=== PATIENT | female | born 1945 | race Caucasian/White ===

== ENCOUNTER → 2016-11-20 | Outpatient (CLI) | payer OTHER, MEDICARE ==
--- NOTE | 2016-11-20 10:42 | US ---
Ultrasound Pelvis Complete (Transabdominal and Endovaginal) Including Duplex/Doppler Imaging History: N95.0, postmenopausal bleeding Technique: Transabdominal and endovaginal ultrasound images were obtained. Endovaginal images obtain ed for better evaluation of the uterine myometrium and adnexa. Duplex/Doppler imaging of adnexa. Findings: Uterus measures 7.3 x 3.5 x 2.8 cm. Endometrial thickness is 3 mm. In the right fundus of the uterus there is an exophytic hypoechoic heterogenous leiomyoma measuring 2.5 x 2 x 1.6 cm. In th e endocervical canal there are two polypoid lesions with surrounding fluid measuring 0.7 x 0.6 x 0.3 cm and 0.6 x 0.5 x 0.4 cm. Right ovary measures 1 x 0.8 x 0.6 cm. Left ovary measures 1.3 x 1.2 x 0.9 cm. No adnexal masses. No significant free fluid in the pelvis. Color Doppler flow to both ovaries without torsion. Impression: 1. Uterus demonstrates two endocervical polypoid masses up to 0.7 cm. Recommend endometrial biopsy. 2. Right-sided fundal uterine leiomyoma measuring 2.5 x 2 x 1.6 cm. 3. No adnexal masses or ascites.
== END ==
LOC: FIMAGING 09:21
PROVIDERS: ATTEND Midwife
DX: N95.0 Postmenopausal bleeding (principal); N88.8 Other specified noninflammatory disorders of cervix uteri; D25.9 Leiomyoma of uterus, unspecified

== ENCOUNTER 2017-01-03 06:36 | Day surgery (SDC) | payer OTHER, MEDICARE ==
[2016-12-24 18:55] LABS: ANION GAP 11 mEq/L (8-16); CALCIUM 10.1 mg/dL (8.5-10.4); CARBON DIOXIDE 23 mEq/l (22-31); CHLORIDE 104 mEq/L (97-110); CREATININE 1.1 mg/dL (0.6-1.0); GLOMERULAR FILTRATION RATE 49; GLUCOSE 86 mg/dL (70-100); POTASSIUM 4.3 mEq/L (3.5-5.2); SODIUM 138 mEq/L (134-144)
[2017-01-03] MEDS ORDERED: LIDOCAINE 1% 2 ML INJ ONE ×3 (06:54→06:58)
[2017-01-03] MEDS ORDERED: MIDAZOLAM 2 MG/2 ML VIAL ONE (06:58)
[2017-01-03] MEDS ORDERED: DEXAMETHASONE 4 MG/ML VIAL ONE (06:58)
[2017-01-03] MEDS ORDERED: PHENYLEPHRINE 10 MG/ML SDV ONE (06:58)
[2017-01-03] MEDS ORDERED: PROPOFOL/EMULSION 500 MG/50 ML BOTTLE IV ONE (06:58)
[2017-01-03] MEDS ORDERED: ONDANSETRON 4 MG/2 ML VIAL ONE (06:58)
[2017-01-03] MEDS ORDERED: LIDOCAINE 2% 5 ML SDV ONE (06:59)
[2017-01-03] MEDS ORDERED: LIDOCAINE 1% 5 ML SDV ID PRN (07:00)
[2017-01-03] MEDS ORDERED: LR 1,000 ML IV ONE (07:00)
[2017-01-03] MEDS ORDERED: SILVER NITRATE APPLICATOR 1 APPL TP ONE (07:05)
[2017-01-03] MEDS ORDERED: fentaNYL 100 MCG/2 ML INJ ONE (07:49)
--- NOTE | 2017-01-03 10:40 | GOP ---
[f rep st] OPERATIVE REPORT DATE OF OPERATION: 01/03/2017 SURGEON: Yvonne Vitale MD ANESTHESIA: General with LMA. ANESTHESIOLOGIST: Montrell Amaro MD PREOPERATIVE DIAGNOSIS: 1. Postmenopausal vaginal bleeding. 2. Uterine polyp. POSTOPERATIVE DIAGNOSIS: 1. Postmenopausal vaginal bleeding. 2. Uterine polyp. PROCEDURE PERFORMED: Diagnostic hysteroscopy, polypectomy and dilatation and curettage. FINDINGS: Stenotic cervical os, 1 long thin polyp at the lower uterine segment on the left. Otherwise, normal intrauterine cavity consistent with postmenopause. ESTIMATED BLOOD LOSS: Minimal. DESCRIPTION OF PROCEDURE: The patient was taken to the operating room and a time-out was done with all parties present, confirming the planned procedure and the correct patient. General anesthesia with LMA was induced without difficulty. The patient was prepped and draped in the normal sterile fashion in dorsal lithotomy with Edmundo stirrups. A final time-out was performed. The speculum was placed in the vagina, and the cervix was grasped on the anterior lip of the cervix with a single tooth tenaculum. Cervical dilation was then performed, starting out with a #1 Hegar dilator and serially progressing to a #6 dilator. Diagnostic hysteroscopy with a 5 mm 0 degree scope was performed with the above findings. The TruClear morcellator handpiece was introduced and was used to completely resect the polyp. The hysteroscope was then removed. A sharp curettage was performed with scant return of tissue and a gritty texture noted 360 degrees around the uterus. The polyp and the uterine curettings were sent to pathology. The tenaculum was removed. There was no bleeding noted from the cervix or the tenaculum sites. The speculum was removed and the surgery was completed. The patient was awakened in stable condition and transferred to the PACU. Counts were correct x2. FLUID DEFICIT: 475 mL of crystalloid. COMPLICATIONS: None. /[id number]/MODL MTDD
== END 2017-01-03 09:45 | disposition home or self-care (01) ==
LOC: FSGY 06:36
PROVIDERS: ATTEND Obstetrics & Gynecology
PROC: 0UB98ZX Excision of Uterus, Via Natural or Artificial Opening Endoscopic, Diagnostic (ICD-10-PCS; principal; 2017-01-03 07:30)
DX: N95.0 Postmenopausal bleeding (principal); N84.0 Polyp of corpus uteri; I10 Essential (primary) hypertension; E78.5 Hyperlipidemia, unspecified; Z88.0 Allergy status to penicillin
CPT/HCPCS: 58558; C1782; J1100; J2250; J2370; J2405; J2704; J3010

== ENCOUNTER → 2017-09-23 | Outpatient (CLI) | payer OTHER, MEDICARE | LOC: FIMAGING 13:21 | PROVIDERS: ATTEND Internal Medicine | DX: Z12.31 Encounter for screening mammogram for malignant neoplasm of breast (principal) | CPT/HCPCS: G0202 ==

== ENCOUNTER 2017-11-19 09:22 | Day surgery (SDC) | payer OTHER, MEDICARE ==
--- NOTE | 2017-11-19 09:40 | PDANEPAE ---
ANE History of Present Illness 71 year old female presents for cystoscopy and retropubic sling. ANE Past Medical History - Cardiovascular History Hx Hypertension: No Hx Arrhythmias: No Hx Chest Pain: No Hx Coronary Artery / Peripheral Vascular Disease: No Hx CHF / Valvular Disease: No Hx Palpitations: No - Pulmonary History Hx COPD: No Hx Asthma/Reactive Airway Disease: No Hx Recent Upper Respiratory Infection: No Hx Oxygen in Use at Home: No Hx Sleep Apnea: No Sleep Apnea Screening Result - Last Documented: Negative - Neurologic History Hx Cerebrovascular Accident: No Hx Seizures: No Hx Dementia: No - Endocrine History Hx Diabetes: No Obesity: no - Renal History Hx Renal Disorders: No - Liver History Hx Hepatic Disorders: No - Neurological & Psychiatric Hx Hx Neurological and Psychiatric Disorders: No - Cancer History Hx Cancer: No - Congenital Disorder History Hx Congenital Disorders: No - GI History GERD: mild Hx Gastrointestinal Disorders: Yes Gastrointestinal History Comment: gerd occasionaly - Other Health History Other Health History: wears glasses - Chronic Pain History Chronic Pain: No - Surgical History Prior Surgeries: 01/03/17 hysteroscopy with Vitale. right hand surgery ANE Review of Systems Review of systems is: negative Review of Systems: - Exercise capacity Exercise capacity: >=4 METS METS (RN): 4 METS ANE Patient History - Allergies Allergies/Adverse Reactions: Penicillins Allergy (Verified 11/18/17 17:29) Hives - Home Medications Home medications: home medication list seen and reviewed Home Medications: Aldactone 12/19/16 [Last Taken 11/18/17] Aspirin 12/19/16 [Last Taken 11/18/17] Atorvastatin Calcium 12/19/16 [Last Taken 01/02/17] Prometrium 12/19/16 [Last Taken 01/02/17] Vivelle-Dot 0.05MG (*) 12/19/16 [Last Taken 01/01/17] Estrace Vaginal (*) 11/18/17 [Last Taken Unknown] - NPO status NPO Status: no food or drink >8 hours - Anes Hx Anes Hx: no prior problems - Smoking Hx Smoking Status: Never smoked Marijuana use: No - Alcohol Use Alcohol Use: Rarely - Family Anes Hx Family Anes Hx: neg - N/A Family Hx Anesthesia Complications: none ANE Labs/Vital Signs - Vital Signs Vital Signs: reviewed preoperatively; see RN documention for details Height: 154.94 cm Weight: 56.699 kg ANE Physical Exam - Airway Neck exam: FROM Mallampati Score: Class 2 Mouth exam: normal dental/mouth exam - Pulmonary Pulmonary: no respiratory distress - Cardiovascular Cardiovascular: regular rate and rhythym - ASA Status ASA Status: II ANE Anesthesia Plan Anesthesia Plan: general endotracheal anesthesia Total IV Anesthesia: No
[2017-11-19] MEDS ORDERED: LIDOCAINE 1% 2 ML INJ ID PRN (09:42)
[2017-11-19] MEDS ORDERED: LR 1,000 ML IV ONE (09:42)
--- NOTE | 2017-11-19 09:42 | PDHPUP ---
History & Physical Update H&P update statement: This history and physical update is based on an assessment of the patient which was completed after admission or registration (within 24 hours), but prior to the surgery/procedure. H&P update: H&P reviewed & patient examined, no change in patient's condition since H&P completed
--- NOTE | 2017-11-19 09:42 | PDGENHP ---
History and Physical History and Physical: Assessment and Plan: 1. Genuine stress incontinence, female Sunita has fairly straightforward stress urinary incontinence with a mobile urethra. We reviewed all conservative and surgical options. At the end of our discussion she is interested in scheduling a mid urethral sling procedure. Subjective: Patient ID: Sunita Case is a 71 y.o. female who presents to [facility] for urinary incontinence. SAMANTHA Dorsey was kindly referred by Dr. Vitale for urinary incontinence. She is a 71- year-old para 0 woman. She leaks with sneezing and coughing. She walks about 1 hour per day. She will run trials 3 times per week and lifts weights twice per week. She has been leaking urine for about 3 years. More recently it has begun leaking during walking which is extremely bothersome. She has no urinary urgency. She wakes up 1 time per night with the need to urinate. She has tried pelvic floor muscle strengthening without success. She remains sexually active. She will be in [place] the last 3 weeks of November. PastMedicalHistory No past medical history on file. PastSurgicalHistory Past Surgical History: Procedure Laterality Date BREAST SURGERY implants and removed CURRENT MEDICATIONS: Current Outpatient Prescriptions Medication Sig amitriptyline (ELAVIL) 10 mg tablet ESTRACE 0.01 % (0.1 mg/gram) vaginal cream estradiol (VIVELLE-DOT) 0.05 mg/24 hr progesterone (PROMETRIUM) 200 mg capsule spironolactone (ALDACTONE) 50 mg tablet zaleplon (SONATA) 10 mg capsule No current facility-administered medications for this visit. ALLERGIES: Penicillins I have reviewed, verified and agree with the past medical, surgical, , family, social and ROS history as documented by the RN today. Objective: Vital Signs: Visit Vitals BP 102/62 Pulse 88 Temp 35.8 C (96.5 F) Resp 15 Ht 1.549 m (5' 1") Wt 58.4 kg (128 lb 12.8 oz) SpO2 98% BMI 24.34 kg/m Physical Exam Gen: This is an alert, well developed woman in no distress. Neuro: She moves all extremities. Psych: She is appropriate, oriented, with normal affect. Neck: No thyroid enlargement, adenopathy, or tenderness. Lungs: Clear to ascultation, no wheezes or rales. Heart: Regular rate and rhythm without obvious murmurs. Abdomen: Soft, non-tender, without guarding, rebound, or masses. Extremities: No edema or cyanosis. Pelvic: Normal external genitalia. Non-gaping introitus, vagina without discharge, adequately estrogenized, no significant prolapse. Cervix without lesions or discharge. Uterus normal sized, mobile, non-tender. Adnexa non- tender without enlargement. The urethra is mobile. She has obvious urinary incontinence with coughing. DATA: I have reviewed the pertinent medical records. TIME/COMMUNICATION: I personally spent a total of 35 minutes. Of that 25 minutes was counseling/ coordination of patient's care. See my note above for details. Blas Lizama MD Board Certified Female Pelvic Medicine and Reconstructive Surgery Director of Minimally Invasive Gynecologic Surgery, [facility] Surgeon in Minimally Invasive Gynecologic Surgery
[2017-11-19] MEDS ORDERED: BUPIVACAINE/EPI 0.5% 30 ML SDV ONE (10:06)
[2017-11-19] MEDS ORDERED: PROPOFOL/EMULSION 500 MG/50 ML BOTTLE IV ONE ×2 (10:07→10:33)
[2017-11-19] MEDS ORDERED: fentaNYL 100 MCG/2 ML INJ ONE ×2 (10:08→11:11)
[2017-11-19] MEDS ORDERED: ONDANSETRON 4 MG/2 ML VIAL ONE (10:08)
[2017-11-19] MEDS ORDERED: DEXAMETHASONE 4 MG/ML VIAL ONE (10:08)
[2017-11-19] MEDS ORDERED: ROCURONIUM 50 MG/5 ML VIAL ONE (10:08)
[2017-11-19] MEDS ORDERED: LIDOCAINE 2% 5 ML SDV ONE (10:08)
--- NOTE | 2017-11-19 10:46 | POSTOPPROG ---
Post Op Note Date of Operation: 11/19/17 Surgeon: Blas Lizama Cube Cutter: None Anesthesia: GET(General Endotracheal) Pre-op Diagnosis: stress incontinence Post-op Diagnosis: same Procedure: retropubic sling, cysto Findings: no bladder or urethral injury Inf/Abcess present in the surg proc area at time of surgery?: No EBL: Minimal Complications: None
[2017-11-19] MEDS ORDERED: LR 500 ML IV PRN (10:52)
[2017-11-19] MEDS ORDERED: ONDANSETRON 4 MG/2 ML VIAL IVP PRN (10:52)
[2017-11-19] MEDS ORDERED: NALOXONE HCL 0.4 MG/ML INJ IVP PRN (10:52)
[2017-11-19] MEDS: fentaNYL 100 MCG/2 ML INJ IVP PRN ×2 (11:14→11:27)
[2017-11-19] MEDS ORDERED: HYDROCODONE/APAP 5/325 TAB ONE (12:21)
[2017-11-19] MEDS ORDERED: HYDROCODONE/APAP 5/325 TAB PO PRN (12:23)
--- NOTE | 2017-11-19 12:25 | POSTANESTH ---
Post Anesthetic Evaluation Cardiovascular Status: Normal, Stable, Similar to Pre-Op Cond Respiratory Status: Normal, Stable, Similar to Pre-op Cond. Level of Consciousness/Mental Status: Can Participate in Eval, Alert and Oriented Pain Control: Adequate, Prn Tx Ordered Nausea/Vomiting Control: Adequate, Prn Tx Ordered Complications Possibly Related to Anesthesia: None Noted
[2017-11-19 12:28] VITALS: RESP 17
[2017-11-19 13:11] VITALS: BP 122/82; TEMP 208.8; O2SAT 95
[2017-11-19 13:14] VITALS: PULSE 75
--- NOTE | 2017-11-19 16:08 | GOP ---
[f rep st] OPERATIVE REPORT DATE OF OPERATION: 11/19/2017 SURGEON: Blas Lizama MD RETAIL DELIVERY DRIVER: None. ANESTHESIA: General. PREOPERATIVE DIAGNOSIS: Stress urinary incontinence. POSTOPERATIVE DIAGNOSIS: Stress urinary incontinence. PROCEDURE PERFORMED: 1. Retropubic sling. 2. Cystoscopy. FINDINGS: SPECIMENS: None. ESTIMATED BLOOD LOSS: Scant. DESCRIPTION OF PROCEDURE: The patient was taken to the operating room. She was identified. General anesthesia was administered and found to be adequate. She was placed in the lithotomy position and prepared and draped in normal sterile fashion. A Manriquez catheter was placed in her bladder. A mid urethral incision was made with a scalpel. Tunnels were created bilaterally around the urethra toward the space of Retzius. The retropubic trocar with the sling attached was passed through the t unnel, redirected around the symphysis pubis and out through a suprapubic stab incision. The exact s gabriella procedure was performed on the patient's right side. Cystoscopy was then performed. No evidence of bladder injury had occurred. No obvious pathology was seen. The sling was then adjusted to allo w a small mid urethral gap. The vaginal epithelium was closed with 2-0 Vicryl, skin with 4-0 Monocry l. Local anesthetic was then injected. Anesthesia was reversed, and the patient taken the PACU awak e, in stable condition. COMPLICATIONS: None. DISPOSITION: Patient stable to PACU. /[id number]/MODL
== END 2017-11-19 13:10 | disposition left against medical advice (07) ==
LOC: FSGY 09:22
PROVIDERS: ATTEND Obstetrics & Gynecology
PROC: 0TUC0JZ Supplement Bladder Neck with Synthetic Substitute, Open Approach (ICD-10-PCS; principal; 2017-11-19 12:45)
PROC: 0TJB8ZZ Inspection of Bladder, Via Natural or Artificial Opening Endoscopic (ICD-10-PCS; principal; 2017-11-19 12:45)
DX: N39.3 Stress incontinence (female) (male) (principal)
CPT/HCPCS: C1771; J1100; J1956; J2405; J2704; J3010

== ENCOUNTER → 2018-11-04 | Outpatient (CLI) | payer OTHER, MEDICARE | LOC: FIMAGING 14:37 | PROVIDERS: ATTEND Internal Medicine | DX: Z12.31 Encounter for screening mammogram for malignant neoplasm of breast (principal) ==